=== PATIENT | male | born 1985 | race Caucasian/White ===

== ENCOUNTER 2024-11-29 20:29 | Emergency (ER) | payer BC ==
[2024-11-29] MEDS: HYDROmorphone 0.5 MG/0.5 ML Syringe IVPUSH ONE (21:22)
[2024-11-29] MEDS: Sodium Chloride 0.9% 1,000 ML IV ONE (21:22)
[2024-11-29] MEDS: Ketorolac 30 MG/ML SDV IVPUSH ONE (21:24)
[2024-11-29] MEDS: Ondansetron 4 MG/2 ML SDV IVPUSH ONE (21:24)
[2024-11-29 21:34] LABS: BASOPHILS ABSOLUTE AUTO 0.06 K/uL (0.00-0.20); BASOPHILS PERCENT AUTO 0.7 % (0.0-1.0); EOSINOPHILS ABSOLUTE AUTO 0.14 K/uL (0.00-0.45); EOSINOPHILS PERCENT AUTO 1.5 % (0.0-6.0); HEMATOCRIT 43.2 % (42.0-52.0); HEMOGLOBIN 14.8 g/dL (14.0-18.0); IMMATURE GRAN ABSOLUTE AUTO 0.05 K/uL (0.00-0.05); IMMATURE GRAN PERCENT AUTO 0.6 % (0.0-0.4); LYMPHOCYTES ABSOLUTE AUTO 3.39 K/uL (1.00-4.80); LYMPHOCYTES PERCENT AUTO 37.4 % (24.0-44.0); MEAN CORPUSCULAR HEMOGLOBIN 30.2 pg (28.0-32.0); MEAN CORPUSCULAR HGB CONC 34.3 g/dL (32.0-36.0); MEAN CORPUSCULAR VOLUME 88.2 fL (83.0-99.0); MEAN PLATELET VOLUME 10.1 fL (9.4-12.4); MONOCYTES ABSOLUTE AUTO 0.83 K/uL (0.00-0.80); MONOCYTES PERCENT AUTO 9.2 % (0.0-8.0); NEUTROPHILS ABSOLUTE AUTO 4.59 K/uL (1.80-7.70); NEUTROPHILS PERCENT AUTO 50.6 % (41.0-71.0); PLATELET COUNT,PLT 223 K/uL (150-400); WHITE BLOOD CELL COUNT,WBC 9.06 K/uL (3.9-11.3)
[2024-11-29] MEDS: Iopamidol 755 Mg/ML 100 ML Bottle IVPUSH ONE (21:56)
[2024-11-29 22:15] LABS: A/G RATIO 1.2 (0.9-1.6); BILIRUBIN TOTAL 0.4 mg/dL (0.2-1.0); CARBON DIOXIDE,CO2 27.5 mmol/L (21.0-32.0); CREATININE 0.9 mg/dL (0.8-1.3); EST CRCL DRUG DOSING (CG) 102.01 mL/min; POTASSIUM,K 3.7 mmol/L (3.5-5.1); PROTEIN TOTAL,TP 7.4 g/dL (6.4-8.2)
[2024-11-29 22:23] LABS: CALCIUM 8.8 mg/dL (8.5-10.1)
[2024-11-29 22:30] LABS: APPEARANCE,URINE CLEAR; BILIRUBIN,URINE NEGATIVE (NEGATIVE); COLOR,URINE YELLOW; GLUCOSE,URINE NEGATIVE (NEGATIVE); KETONES,URINE NEGATIVE (NEGATIVE); LEUKOCYTE ESTERASE,URINE NEGATIVE (NEGATIVE); NITRITE,URINE NEGATIVE (NEGATIVE); OCCULT BLOOD,URINE NEGATIVE (NEGATIVE); PH,URINE 5.5 (5.0-8.0); PROTEIN,URINE NEGATIVE (NEGATIVE); UROBILINOGEN,URINE 0.2 EU/dL (<2.0)
== END 2024-11-29 23:01 | disposition home or self-care (01) ==
LOC: MW.ED 20:29
DX: K76.0 Fatty (change of) liver, not elsewhere classified (principal); K59.00 Constipation, unspecified
CPT/HCPCS: 36415; 74177; 80053; 81003; 83605; 83690; 85025; 96361; 96374; 96375; 99284; J1885; J2405; J7030; Q9967